=== PATIENT | male | born 1955 | race Caucasian/White ===

== ENCOUNTER → 2018-01-24 | Outpatient (CLI) | payer BC | END | disposition home or self-care (01) | LOC: LABPAT 08:17 | PROVIDERS: ATTEND Orthopaedic Surgery | DX: Z01.812 Encounter for preprocedural laboratory examination (principal) | CPT/HCPCS: 87070 ==

== ENCOUNTER → 2018-01-26 | Outpatient (CLI) | payer BC ==
[2018-01-26 17:04] LABS: Basophils % (A) 1 %; Eosinophils # (A) 0.2 k/uL (0-0.7); Eosinophils % (A) 2 %; HCT 46.3 % (39.0-53.0); HGB 15.2 gm/dL (13.0-17.5); Lymphocytes # (A) 2.4 k/uL (1.0-4.8); Lymphocytes % (A) 25 %; MCH 29.8 pg (25.0-35.0); MCHC 32.9 g/dL (31.0-37.0); MCV 90.7 fL (80.0-100.0); Mean Platelet Volume 7.9; Monocytes # (A) 0.5 k/uL (0-1.0); Monocytes % (A) 5 %; Neutrophils # (A) 6.4 k/uL (1.3-7.7); Neutrophils % (A) 66 %; Platelet Count 228 k/uL (150-450); RDW 13.1 % (11.5-15.5); WBC 9.6 k/uL (3.8-10.6)
[2018-01-26 17:10] LABS: Partial Thromboplastin Time 23.1 sec (22.0-30.0); Prothrombin Time 10.2 sec (9.0-12.0)
[2018-01-26 17:26] LABS: Potassium 4.2 mmol/L (3.5-5.1)
== END | disposition home or self-care (01) ==
LOC: LABPAT 15:55
PROVIDERS: ATTEND Family Medicine
DX: Z01.818 Encounter for other preprocedural examination (principal); Z01.812 Encounter for preprocedural laboratory examination
CPT/HCPCS: 36415; 80051; 85025; 85610; 85730; 93005

== ENCOUNTER 2018-02-10 06:11 | Inpatient (IN) | payer BC, OTHER ==
[2018-02-03 14:55] VITALS: BMI 36.9
--- NOTE | 2018-02-09 11:24 | HP ---
HISTORY AND PHYSICAL CHIEF COMPLAINT: Right knee pain. 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 He notes significant swelling, stiffness, and pain worse with weightbearing activities. He has tried previous medications and injections with only partial temporary relief. He had a history of a right knee arthroscopy in 2014. PAST MEDICAL HISTORY: Significant for hypertension and arthritis. PAST SURGICAL HISTORY: Significant for tonsillectomy and previous right knee arthroscopy. CURRENT MEDICATIONS: Amlodipine. He denies drug allergies. FAMILY HISTORY: Significant for heart disease. SOCIAL HISTORY: Significant for social alcohol use. REVIEW OF SYSTEMS: A 16 point review of systems otherwise reviewed and is noncontributory. PHYSICAL EXAMINATION: On examination, the patient is approximately 5 foot 11, 285 pounds of endomorphic habitus. HEENT exam is nonfocal. Neck is supple, he has painless passive motion of the right hip. Straight leg raise is negative. Active motion right knee -10 to 80 degrees of flexion. He has a moderate effusion. He is tender about the medial joint line. Collaterals are stable, Elan's negative, Raquel's is equivocal. He has genu varum alignment. His distal neurovascular appears intact in the right lower extremity. Previous weightbearing, notch , lateral and Merchant views of the right knee obtained in the office show severe medial compartment osteoarthrosis. IMPRESSION: 1. Right knee severe medial compartment osteoarthrosis. 2. Increased body mass index. RECOMMENDATIONS: I talked to the patient at length regarding his condition and treatment options. This point he is quite limited because of pain related to his osteoarthrosis. After thorough discussion, he opts to proceed with surgery. We will plan to proceed with right total knee arthroplasty. Risks and benefits were discussed at length in layman's terms. We will institute DVT prophylaxis postoperatively. MMODL / IJN: [id number] /
[~2018-02-10 06:11] MED LIST: ACETAMINOPHEN TAB 500 MG TAB PO ONE; MELOXICAM 7.5 MG TAB PO ONE; TRANEXAMIC ACID 1,000 MG in SODIUM CHLORIDE 0.9% 50 ML IVPB ONE
[2018-02-10] MEDS ORDERED: LIDOCAINE 1% 20 ML VIAL (10MG/ML) FOR IV START INTRADERMA ONE (07:05)
[2018-02-10] MEDS ORDERED: DEXAMETHASONE SOD PHOS (MDV) 100 MG/10 ML VIAL IV ONE (07:11)
[2018-02-10] MEDS ORDERED: ONDANSETRON 4 MG/2 ML VIAL IVP ONE (07:11)
[2018-02-10] MEDS ORDERED: fentaNYL (PF) 50 MCG/ML 2 ML AMP IV ONE (07:22)
[2018-02-10] MEDS ORDERED: MIDAZOLAM 2 MG/2 ML VIAL IV ONE (07:22)
[2018-02-10] MEDS ORDERED: LACTATED RINGERS 1,000 ML IV ONE (07:43)
[2018-02-10] MEDS ORDERED: ROPIVACAINE 1,100 MG, SODIUM CHLORIDE 0.9% 500 ML 330 ML MISCELLANE PRN ×2 (07:45)
--- NOTE | 2018-02-10 07:50 | P.ONQ ---
Anesthesiology Proc Note - PNB - Peripheral Nerve Block Performed Right Adductor Canal Infusion Time Out Performed: Yes Procedure Start Time: :23 Procedure Stop Time: :30 Indication: Acute Post-Operative Pain, Analgesia, Requested by physician Sedation Type: Sedate with meaningful contact maintained Preparation: Sterile Prep Position: Supine Catheter Depth at Skin (cm): 4 Catheter: Indwelling Needle Types: On-Q Needle Size: 100mm (4") Needle Gauge: 20 Technique: Ultrasound Injectate: Other (see comment) (bupivicaine 0.5% 20ml) Blood Aspirated: No Pain Paresthesia on Injection Noted: No Resistance on Injection: Normal Events: Uneventful and Well Tolerated
[2018-02-10] MEDS ORDERED: ROPIVACAINE 246.25 MG, EPINEPHrine 0.5 MG, KETOROLAC 30 MG, cloNIDine HCL/PF 80 MCG, WA... MISCELLANE ONE ×5 (08:02)
[2018-02-10] MEDS ORDERED: ceFAZolin 3,000 MG in SODIUM CHLORIDE 0.9% IRRIGATIO 3,000 ML IRRIGATION ONE (08:35)
[2018-02-10] MEDS ORDERED: traMADol 50 MG TAB PO PRN (09:36)
[2018-02-10] MEDS ORDERED: NALOXONE 0.4 MG/ML 1 ML VIAL IV PRN (09:36)
[2018-02-10] MEDS ORDERED: HYDROcodone/APAP 7.5-325MG 1 EACH TAB PO PRN (09:36)
[2018-02-10] MEDS ORDERED: HYDROmorphone 1 MG/ML 1 ML SYRINGE IVP PRN ×2 (09:36)
[2018-02-10] MEDS ORDERED: MAGNESIUM HYDROXIDE 2,400 MG/10 ML CUP PO PRN (09:36)
[2018-02-10] MEDS ORDERED: ONDANSETRON 4 MG/2 ML VIAL IVP PRN (09:36)
--- NOTE | 2018-02-10 10:13 | P.OP ---
Date of Procedure: 02/10/18 Preoperative Diagnosis: Right knee severe tricompartmental osteoarthrosis Postoperative Diagnosis: Same Procedure(s) Performed: Right total knee vmiufoxbtmvy-zrbyaufy-tkvfwobd retaining Implants: Depuy Attune size 9 cemented femoral component, size 9 cemented tibial component , 10 mm articular surface, 38 mm cemented patellar component. This is a cruciate retaining implant. Anesthesia: regional, local, spinal Surgeon: David Curiel Support Staff #1: Michel Russo Estimated Blood Loss (ml): 50 Pathology: other (Bone fragments) Condition: stable Disposition: PACU Indications for Procedure: The patient's a 62-year-old who presents with progressive right knee pain secondary osteoarthrosis despite conservative measures. A discussion of the risks and benefits of operative intervention versus continued conservative measures was made with the patient. He opted to proceed. Operative risks to include infection, neurovascular injury, development of blood clots, possible component loosening, possible component failure and need for subsequent procedures was discussed. Informed consent was obtained. Operative Findings: As below Description of Procedure: The patient was brought to the operating room, and after induction of spinal anesthesia the right lower extremity was prepped and draped in normal fashion. The tourniquet was inflated to 270 mmHg. A longitudinal incision extending 3 finger breaths above this. Pole of patella extending to the medial aspect the tibial tubercle was then made. The skin and subcutaneous tissues were divided sharply. Electrocautery was used for hemostasis. A medial parapatellar arthrotomy was performed. The medial soft tissues to include the superficial and deep portions of the medial collateral ligament as well as the medial hamstring tendons were elevated subperiosteally. The posterior medial capsule was also elevated. The proximal medial tibial osteophytes were carefully removed. The patella was everted. A portion of the retropatellar fat pad was excised sharply. The knee was then flexed. The anterior cruciate ligament was sacrificed. Blunt retractors were placed. A starting hole was made in the distal femur 1 cm anterior to the posterior cruciate ligament origin. An intramedullary femoral guide was gently inserted planning a 5 valgus distal cut with 9 mm distal resection. The cutting block was pinned in place. The distal cut was then made. The posterior referencing sizing guide was utilized. A felt size 9 was most appropriate. 3 of external rotation was built into the system and verified off the trans-epicondylar axis and the posterior condyles. The cutting block was pinned in place. The anterior, posterior, and chamfer cuts were then made. The bone fragments were removed. The sulcus cut was then made with the appropriate guide. The trial size 9 femoral component was placed and was fully seated. There was good anterior to posterior and medial to lateral fit. The distal peg holes were drilled. The trial component was then removed. The extra medullary tibial guide was utilized in line with the tibial shaft and second metatarsal distally. I planned on 2 mm resection from the medial compartment. A planned on 7 posterior slope. The cutting block was pinned. The posterior cruciate ligament was protected with a retractor. The proximal tibial cut was made in the bone removed in one fragment. The tibia sized most probably size 9. The remnants of the medial and lateral menisci were excised at the capsular junction with electrocautery. The trial femoral and tibial components were placed along with a 10 mm articular surface. I was able to obtain full flexion and extension with good stability with varus and valgus stress. After several flexion and extension cycles, the tibial rotation was marked with electrocautery in line with the medial one third of the tibial tubercle. Attention was then paid towards preparing the patella. A patella reamer was utilized taking this down to 15 mm of bone stock. A good flush cut was made. The patella sized most appropriately 38 mm per the peg holes were drilled. The trial components placed. The knee was taken through a range of motion. I had good patellofemoral tracking with no hands technique. The trial components were then removed. The tibia was prepared in the appropriate rotation with appropriate drill and keel punch. The posterior osteophytes of the distal femur were carefully removed. The flexion and extension gaps were checked and felt to be symmetric. The posterior soft tissues were injected with ropivacaine. The bony surfaces were prepared with pulsatile lavage and dried. Additional drill holes were made in the proximal medial tibia to facilitate cement interdigitation. The tibial component was then cemented in place and was fully seated. Excess cement was removed. The femoral component was cemented place and was fully seated. Excess cement was removed. The trial 10 mm articular surface was placed in the knee was put in full extension. The patella component cemented in place. After the cement had sufficiently hardened , the knee was again taken through a range of motion. Again I was able to obtain full flexion and extension with good stability with varus and valgus stress. The trial articular surface was removed and the final one inserted. This was fully seated. Care was taken to avoid any soft tissue interposition. Pulsatile lavage was again utilized. The tourniquet was deflated with approximately 70 minutes total tourniquet time. Final hemostasis was obtained with electrocautery. The second dose of IV TXA was given. The medial parapatellar arthrotomy was closed with #2 Ethibond suture. Was minimal drainage therefore a deep drain was not placed. The subcutaneous tissues were reapproximated interrupted 2-0 Vicryl sutures. The skin was reapproximated with 3-0 subcuticular strata fix suture. Skin tape and adhesive was applied. A sterile dressing was applied. The patient was then awoken from sedation and transferred to recovery room in good condition. Blood loss was estimated at 50 mL. No complications were incurred. Sponge and needle counts were correct at the end the case. Moiz KENT assisted during the major components of the case to include exposure, bone resection, implantation.
[2018-02-10 10:36] VITALS: RESP 16
--- NOTE | 2018-02-10 10:52 | XR ---
Right knee HISTORY: Status post right knee arthroplasty 2 views of the right knee Patient is status post right knee arthroplasty. There is lucency in the soft tissues compatible with postop state. There is anatomic alignment. IMPRESSION: Orthopedic follow-up.
[2018-02-10] MEDS: LACTATED RINGERS 1,000 ML IV SCH (10:57)
--- NOTE | 2018-02-10 12:59 | P.CONS ---
History of Present Illness - Reason for Consult Consult date: 02/10/18 Medical management Requesting physician: David Curiel - Chief Complaint s/p right TKA - History of Present Illness 62-year-old male who underwent elective right total knee arthroplasty on 02/10/[address] Deal was consulted for medical management. The patient has a history of hypertension, osteoarthritis, and GERD. The patient also chews tobacco on a daily basis. The patient was seen and examined at the bedside. Patient states his pain is tolerable at this time. He denies shortness of breath. Denies chest pain or pressure. Patient does report he recently related to the bathroom. Patient states he had some nausea initially in the postoperative phase but states it has subsided. He is tolerating liquids at this time. Vital signs have been stable. Review of Systems GENERAL: Patient denies fever. Denies chills. EYES: Denies blurred vision. Denies vision changes. Denies eye pain. EARS, NOSE, MOUTH, & THROAT: Denies headache. Denies sore throat. Denies ear pain. RESPIRATORY: Denies cough. Denies shortness of breath. Denies sputum production. Denies hemoptysis. CARDIOVASCULAR: Denies chest pain or pressure. Denies palpitations. Denies arrhythmias. GASTROINTESTINAL: Reports some nausea postoperatively. Denies abdominal pain. Denies diarrhea. Denies constipation. Denies vomiting. Denies heartburn. Denies blood in the stool. GENITOURINARY: Denies urinary frequency. Denies burning. Denies dysuria. Denies cloudy urine. Denies blood in the urine. MUSCULOSKELETAL: Denies myalgias. Denies joint swelling. Denies decreased range of motion beyond patients baseline. INTEGUMENTARY: Denies pruitis. Denies rash. PSYCHIATRIC: Denies suicidal or homicial ideations. ENDOCRINE: Denies weight change. Denies polydipsia. Denies polyuria. HEMATOLOGIC: Denies bleeding disorders. Past Medical History Past Medical History: Asthma, GERD/Reflux, Hypertension, Osteoarthritis (OA) Additional Past Medical History / Comment(s): asthma as a child History of Any Multi-Drug Resistant Organisms: None Reported Past Surgical History: Orthopedic Surgery, Tonsillectomy Additional Past Surgical History / Comment(s): arthroscopy knee Past Anesthesia/Blood Transfusion Reactions: No Reported Reaction Smoking Status: Current every day smoker - Past Family History Mother Family Medical History: No Reported History Medications and Allergies Home Medications Medication Instructions Recorded Confirmed Type amLODIPine BESYLATE/BENAZEPRIL 1 cap PO DAILY 02/03/18 02/10/18 History [amLODIPine BESYLATE/BENAZEPRIL 10-20 mg] Allergies Allergy/AdvReac Type Severity Reaction Status Date / Time No Known Allergies Allergy Verified 02/10/18 10:34 Physical Exam Vitals: Vital Signs Temp Pulse Resp BP Pulse Ox 02/10/18 10:45 74 16 128/57 93 L 02/10/18 10:30 49 L 16 134/59 96 02/10/18 10:15 62 18 114/61 96 02/10/18 10:03 97.1 F L 54 L 14 104/77 98 02/10/18 07:35 63 16 123/67 99 02/10/18 07:05 98.4 F 80 16 132/79 98 Intake and Output 02/09/18 02/10/18 02/10/18 22:59 06:59 14:59 Intake Total 951 Output Total 50 Balance 901 Intake: IV 951 Output: Estimated Blood Loss 50 GENERAL: This is a 62-year-old male in no apparent distress at the time of examination. Pleasant and cooperative. HEENT: Head is atraumatic, normocephalic. Pupils are equal, round, and reactive to light. Sclerae anicteric. Conjunctivae are clear. Mucus membranes of the mouth are moist. Neck is supple. RESPIRATORY: Clear to auscultation. No wheezes, rales, or rhonchi. No use of accessory muscles. Patient maintaining oxygen saturation greater than 92%. No chest wall tenderness is noted on palpation or with deep breathing. CARDIOVASCULAR: Regular rate and rhythm. S1 and S2 noted. No JVD noted. No S3 or S4 noted. GASTROINTESTINAL: No distention noted. Abdomen soft and round. Normal active bowel sounds auscultated x 4 quadrants. No pain or tenderness noted upon palpation. INTEGUMENTARY: Dressing to right knee clean dry and intact. No cyanosis. No jaundice. No rashes noted. No cellulitis noted. EXTREMITIES: On-Q pain pump noted. 2+ peripheral pulses. No evidence of peripheral edema. No calf tenderness noted. NEUROLOGIC: Cranial nerves II-XII intact. PSYCHIATRIC: Awake, alert, and oriented X 3. Appropriate affect. Intact judgement and insight. Assessment and Plan Plan: ASSESSMENT: Osteoarthritis, status post right total knee arthroplasty Hypertension Gastroesophageal reflux disease Nicotine dependence, patient chews tobacco on a daily basis Obesity: BMI 37.0 PLAN: Continue postoperative care per orthopedics. Activity as tolerated. PT/OT. Pain control. Incentive spirometer 10 times an hour while awake. Resume patient's home medications. DVT prophylaxis with Xarelto. GI prophylaxis with Pepcid 20 mg twice daily. Monitor labs. Monitor blood pressure and address as appropriate. Thank you for this consultation. We will continue to follow with Venkata during his hospitalization. Nurse practitioner note has been reviewed by physician. Signing provider agrees with the documented findings, assessment, and plan of care.
[2018-02-10] MEDS: HYDROcodone/APAP 7.5-325MG 1 EACH TAB PO PRN ×2 (16:11→22:15)
[2018-02-10] MEDS ORDERED: SENNOSIDES-DOCUSATE SODIUM 1 EACH TAB PO SCH (21:00)
[2018-02-10] MEDS: FAMOTIDINE 20 MG TAB PO SCH (22:42)
[2018-02-11 01:31] VITALS: PULSE 61
[2018-02-11] MEDS: HYDROcodone/APAP 7.5-325MG 1 EACH TAB PO PRN ×2 (05:08→11:28)
[2018-02-11] MEDS: LACTATED RINGERS 1,000 ML IV SCH (06:54)
[2018-02-11 08:08] VITALS: BP 128/85; TEMP 98.1
[2018-02-11] MEDS: FAMOTIDINE 20 MG TAB PO SCH (08:14)
[2018-02-11] MEDS ORDERED: amLODIPine 10 MG TAB PO SCH (09:00)
[2018-02-11] MEDS ORDERED: RIVAROXABAN 10 MG TAB PO SCH (09:00)
[2018-02-11] MEDS ORDERED: LISINOPRIL 20 MG TAB PO SCH (09:00)
[2018-02-11 09:39] LABS: Basophils % (A) 0 %; Eosinophils # (A) 0.1 k/uL (0-0.7); Eosinophils % (A) 1 %; HCT 40.1 % (39.0-53.0); HGB 12.7 gm/dL (13.0-17.5); Lymphocytes # (A) 2.4 k/uL (1.0-4.8); Lymphocytes % (A) 19 %; MCH 29.3 pg (25.0-35.0); MCHC 31.8 g/dL (31.0-37.0); MCV 92.2 fL (80.0-100.0); Mean Platelet Volume 8.1; Monocytes # (A) 0.8 k/uL (0-1.0); Monocytes % (A) 6 %; Neutrophils # (A) 9.5 k/uL (1.3-7.7); Neutrophils % (A) 73 %; Platelet Count 175 k/uL (150-450); RBC 4.35 m/uL (4.30-5.90); WBC 13.1 k/uL (3.8-10.6)
--- NOTE | 2018-02-11 11:56 | P.PN ---
Subjective Progress Note Date: 02/11/18 Principal diagnosis: Status post right total knee arthroplasty Patient is seen today resting in his hospital bed, he has family at bedside. Patient is doing very well at this point, pain is well-controlled. He's ambulating well with therapy. Denies any chest pain or shortness of breath. Objective - Vital Signs Vital signs: Vital Signs Temp 98.1 F 02/11/18 08:06 Pulse 61 02/11/18 08:06 Resp 16 02/11/18 08:06 BP 128/85 02/11/18 08:06 Pulse Ox 99 02/11/18 08:06 Intake & Output 02/10/18 02/11/18 02/11/18 18:59 06:59 18:59 Intake Total 1441 200 Output Total 550 Balance 891 200 Weight 120.202 kg Intake: IV 951 Intake, IV Titration 50 200 Amount Lactated Ringers 1,000 ml 200 @ 50 mls/hr IV .Q20H CALEB Rx#:[id number] ceFAZolin 3 gm In Sodium 50 Chloride 0.9% 50 ml @ 50 mls/hr IVPB Q8HR CALEB Rx#: [id number] Oral 440 Output: Urine 500 Estimated Blood Loss 50 Other: Voiding Method Toilet Toilet Toilet # Voids 1 1 - Exam Right lower extremity: Incision is clean, dry, and intact. The prineo tape is in good condition. There is minimal soft tissue swelling and ecchymosis surrounding the medial and lateral aspects of the incision. Calf is soft, no tenderness with palpation. Plantar flexion, dorsiflexion, EHL, FHL are intact. Sensory exam to light touch throughout the extremity is intact, dorsal pedis pulses 2+. - Labs CBC & Chem 7: 02/11/18 07:42 Labs: Abnormal Lab Results - Last 24 Hours (Table) 02/11/18 Range/Units 07:42 WBC 13.1 H (3.8-10.6) k/uL Hgb 12.7 L (13.0-17.5) gm/dL Neutrophils # 9.5 H (1.3-7.7) k/uL Assessment and Plan Plan: Assessment: Postoperative day 1 status post right total knee arthroplasty Plan: Pain control, we'll discharge home on oral medication GI and DVT prophylaxis, Eliquis 2.5mg bid for 2 weeks Wound care instructions discussed Home physical therapy and nursing after discharge Medical recommendations Discharge planning: Patient will be discharged home today Time with Patient: Less than 30
--- NOTE | 2018-02-11 12:02 | P.DS ---
Providers Date of admission: 02/10/18 06:11 Expected date of discharge: 02/11/18 Attending physician: David Curiel Consults: 02/10/18 09:39 Consult Physician Routine Consulting Provider: Melecio Deal Reason/Comments: Medical Management Do you want consulting provider notified?: Yes Primary care physician: Melecio Deal Hospital Course: Date of admission: 02/10/2018 Date of discharge: 02/11/2018 Admission diagnosis: Status post right total knee arthroplasty Discharge diagnosis: Same Attending physician: Dr. Curiel Surgical procedures: Right total knee arthroplasty Brief history: Patient is a 62-year-old male with a history of progressive primary right knee osteoarthritis. At this point patient has failed conservative treatment measures and has opted to proceed with a elective right total knee arthroplasty. Hospital course: Details of patient's surgery can be found in operative report. Patient tolerated the procedure well and was subsequently transported to orthopedic floor. Patient's orthopeidc and medical care was provided daily. Patient had daily laboratory tests performed for evaluation of overall blood counts. Patient had daily physical therapy to include strengthening range of motion as well as education with walker ambulation. Patient had daily CPM usage as part of their physical therapy program. Patient was treated with Xarelto for their postoperative DVT prophylaxis during their inpatient stay. Patient was noted to have a relatively uneventful postoperative course. Patient reported satisfactory pain control with oral pain medications by postoperative day 0. Patient showed satisfactory progress with physical therapy. Patient moved steadily through the program and had no difficulty meeting the goals by postoperative day 1. Given patient's otherwise satisfactory course and having met physical therapy goals, plan is to discharge patient home on postoperative day 1. Discharge condition/disposition: Patient will be discharged home in stable condition. Discharge medications: Instructions are given on resumption of patient's normal daily medications per primary care recommendation, in addition patient will be prescribed [place] 7.5 mg/325 mg, tramadol 50 mg, Colace 100 mg, Eliquis 2.5mg. Discharge instructions: 1. Wound care and infection precautions, keep incision dry and covered while showering, no lotions, creams, moisturizers. No soaking, tubs, pools, hottubs. Do not scrub over the incision. 2. Weight-bear as tolerated with walker / cane until follow-up. 3. Ice and elevate when necessary. Do not exceed 20 minutes per hour with ice pack. 4. Utilize compression sleeve until seen at first follow up appointment. 5. Visiting nursing care. 6. Home physical therapy including home CPM. 7. Pain meds and anticoagulants per prescription. 8. Pain medication has potential to cause constipation. Increase oral fluid and fiber intake. Contact primary care provider if you have not had a bowel movement within 48 hours after discharge 9. No anti-inflammatory medication until discussed at first post operative visit, this including Motrin, Aleve, Mobic, Diclofenac. 10. Follow up in office at 2 weeks postop with Moiz Russo PA-C 11. Follow up with your primary care doctor 7-10 days after discharge. 12. Contact [facility] with any questions, . Procedures: Right total knee arthroplasty Patient Condition at Discharge: Good Plan - Discharge Summary Discharge Rx Participant: Yes New Discharge Prescriptions: New Docusate [Colace] 100 mg PO DAILY #30 capsule HYDROcodone/APAP 7.5-325MG [[place] 7.5] 1 - 2 each PO Q6HR PRN #40 tab PRN Reason: Pain traMADol HCl [Ultram] 50 mg PO Q6H PRN #28 tab PRN Reason: Pain Continue amLODIPine BESYLATE/BENAZEPRIL [amLODIPine BESYLATE/BENAZEPRIL 10-20 mg] 1 cap PO DAILY Discharge Medication List amLODIPine BESYLATE/BENAZEPRIL [amLODIPine BESYLATE/BENAZEPRIL 10-20 mg] 1 cap PO DAILY 02/03/18 [History] Docusate [Colace] 100 mg PO DAILY #30 capsule 02/11/18 [Rx] HYDROcodone/APAP 7.5-325MG [[place] 7.5] 1 - 2 each PO Q6HR PRN #40 tab 02/11/18 [ Rx] traMADol HCl [Ultram] 50 mg PO Q6H PRN #28 tab 02/11/18 [Rx] Follow up Appointment(s)/Referral(s): [facility], [NON-STAFF] - As Needed Michel Russo PAC [PHYSICIAN EMPLOYEE RELATIONS MANAGER] - 02/25/18 2:30 pm Melecio Deal MD [Primary Care Provider] - 02/24/18 10:30 am Activity/Diet/Wound Care/Special Instructions: Orthopedic Discharge Instructions: 1. Wound care and infection precautions, keep incision dry and covered while showering, no lotions, creams, moisturizers. No soaking, pools, hot tubs. Do not scrub over incision. 2. Weight-bear as tolerated with walker / cane until follow-up. 3. Ice and elevate when necessary. Do not exceed 20 minutes per hour with ice pack. 4. Utilize compression sleeve until seen at first follow up appointment. 5. Pain meds and anticoagulants per prescription. 6. Pain medication has potential to cause constipation. Increase oral fluid and fiber intake. Contact primary care provider if you have not had a bowel movement within 48 hours after discharge. 7. No anti-inflammatory medication until discussed at first post operative visit, this including Motrin, Aleve, Mobic, Diclofenac. 8. Follow up in office at 2 weeks postop with Moiz Russo PA-C 9. Follow up with your primary care doctor 7-10 days after discharge. 10. Contact [facility] with any questions, . Discharge Disposition: HOME WITH HOME HEALTH SERVICES
--- NOTE | 2018-02-11 12:06 | P.PN ---
Subjective Progress Note Date: 02/11/18 62-year-old male who underwent elective right total knee arthroplasty on 02/10/[address] Deal was consulted for medical management. The patient has a history of hypertension, osteoarthritis, and GERD. The patient also chews tobacco on a daily basis. 02/10/2018 The patient was seen and examined at the bedside. Patient states his pain is tolerable at this time. He denies shortness of breath. Denies chest pain or pressure. Patient does report he recently related to the bathroom. Patient states he had some nausea initially in the postoperative phase but states it has subsided. He is tolerating liquids at this time. Vital signs have been stable. 02/11/2018 patient seen and examined at the bedside. Patient states his right knee is a little sore this morning. He has been up ambulating in the hallway and has worked with physical therapy. Denies chest pain or shortness of breath. Patient states his nausea has improved since yesterday. He is tolerating oral intake. Vital signs have been stable. He is anticipating discharge home this afternoon. Objective - Vital Signs Vital signs: Vital Signs Temp 98.1 F 02/11/18 08:06 Pulse 61 02/11/18 08:06 Resp 16 02/11/18 08:06 BP 128/85 02/11/18 08:06 Pulse Ox 99 02/11/18 08:06 Intake & Output 02/10/18 02/11/18 02/11/18 18:59 06:59 18:59 Intake Total 1441 200 Output Total 550 Balance 891 200 Weight 120.202 kg Intake: IV 951 Intake, IV Titration 50 200 Amount Lactated Ringers 1,000 ml 200 @ 50 mls/hr IV .Q20H CAL[facility] Rx#:[id number] ceFAZolin 3 gm In Sodium 50 Chloride 0.9% 50 ml @ 50 mls/hr IVPB Q8HR CALEB Rx#: [id number] Oral 440 Output: Urine 500 Estimated Blood Loss 50 Other: Voiding Method Toilet Toilet Toilet # Voids 1 1 - Exam GENERAL: This is a 62-year-old male in no apparent distress at the time of examination. Pleasant and cooperative. HEENT: Head is atraumatic, normocephalic. Pupils are equal, round, and reactive to light. Sclerae anicteric. Conjunctivae are clear. Mucus membranes of the mouth are moist. Neck is supple. RESPIRATORY: Clear to auscultation. No wheezes, rales, or rhonchi. No use of accessory muscles. Patient maintaining oxygen saturation greater than 92%. No chest wall tenderness is noted on palpation or with deep breathing. CARDIOVASCULAR: Regular rate and rhythm. S1 and S2 noted. No JVD noted. No S3 or S4 noted. GASTROINTESTINAL: No distention noted. Abdomen soft and round. Normal active bowel sounds auscultated x 4 quadrants. No pain or tenderness noted upon palpation. INTEGUMENTARY: Dressing to right knee clean dry and intact. No cyanosis. No jaundice. No rashes noted. No cellulitis noted. EXTREMITIES: On-Q pain pump noted. 2+ peripheral pulses. No evidence of peripheral edema. No calf tenderness noted. NEUROLOGIC: Cranial nerves II-XII intact. PSYCHIATRIC: Awake, alert, and oriented X 3. Appropriate affect. Intact judgement and insight. - Labs CBC & Chem 7: 02/11/18 07:42 Labs: Abnormal Lab Results - Last 24 Hours (Table) 02/11/18 Range/Units 07:42 WBC 13.1 H (3.8-10.6) k/uL Hgb 12.7 L (13.0-17.5) gm/dL Neutrophils # 9.5 H (1.3-7.7) k/uL Assessment and Plan Plan: ASSESSMENT: Osteoarthritis, status post right total knee arthroplasty Hypertension Gastroesophageal reflux disease Nicotine dependence, patient chews tobacco on a daily basis Obesity: BMI 37.0 PLAN: Continue postoperative care per orthopedics. Activity as tolerated. PT/OT. Pain control. Incentive spirometer 10 times an hour while awake. Resume patient's home medications. DVT prophylaxis per orthopedics. GI prophylaxis with Pepcid 20 mg twice daily. Monitor labs. Monitor blood pressure and address as appropriate. The patient is stable for discharge home today from a medical standpoint. He is to follow up with Dr. Deal in 2 weeks. Nurse practitioner note has been reviewed by physician. Signing provider agrees with the documented findings, assessment, and plan of care.
== END 2018-02-11 15:44 | disposition home health service (06) | DRG 470 ==
LOC: 2ORMAIN 06:11 → 4SSUR 09:58
PROVIDERS: ADMIT Orthopaedic Surgery; ATTEND Orthopaedic Surgery
PROC: 0SRC0J9 Replacement of Right Knee Joint with Synthetic Substitute, Cemented, Open Approach (ICD-10-PCS; principal; 2018-02-10 08:00)
DX: M17.11 Unilateral primary osteoarthritis, right knee (principal); I10 Essential (primary) hypertension; Z79.899 Other long term (current) drug therapy; K21.9 Gastro-esophageal reflux disease without esophagitis; F17.290 Nicotine dependence, other tobacco product, uncomplicated; J45.909 Unspecified asthma, uncomplicated; E66.9 Obesity, unspecified; Z68.37 Body mass index [BMI] 37.0-37.9, adult
CPT/HCPCS: 85025; 88300

== ENCOUNTER → 2018-05-28 | Day surgery (SDC) | payer BC ==
[2018-05-26 16:24] VITALS: BMI 37.3
[~2018-05-28] MED LIST changes: -ACETAMINOPHEN TAB 500 MG TAB PO ONE; +LACTATED RINGERS 1,000 ML IV SCH; +LIDOCAINE 1% 20 ML VIAL (10MG/ML) FOR IV START INTRADERMA PRN; +LIDOCAINE 1% INJ 10MG/ML (20 ML MDV) ONE; -MELOXICAM 7.5 MG TAB PO ONE; +MIDAZOLAM (PF) 2 MG/2 ML VIAL IV PRN; +PROPOFOL 10 MG/ML 20 ML VIAL IV ONE; +RX INFO: IV CONTRAST WAS GIVEN 1 EACH MISC MISCELLANE PRN; -TRANEXAMIC ACID 1,000 MG in SODIUM CHLORIDE 0.9% 50 ML IVPB ONE
--- NOTE | 2018-05-28 08:31 | P.GSHP ---
History of Present Illness H&P Date: 05/28/18 CHIEF COMPLAINT: GERD HISTORY OF PRESENT ILLNESS: The patient is a 63-year-old male who presents reports gastroesophageal reflux disease. Upper endoscopy was offered for further evaluation and management. PAST MEDICAL HISTORY: Please see list. PAST SURGICAL HISTORY: Please see list. MEDICATIONS: Please see list. ALLERGIES: Please see list. SOCIAL HISTORY: No illicit drug use FAMILY HISTORY: No reports of Crohn disease or ulcerative colitis. REVIEW OF ORGAN SYSTEMS: CONSTITUTIONAL: No reports of fevers or chills. GI: Denies any blood in stools or constipation. PHYSICAL EXAM: VITAL SIGNS: Stable GENERAL: Well-developed and pleasant in no acute distress. HEENT: No scleral icterus. Extraocular movements grossly intact. Moist buccal mucosa. NECK: Supple without lymphadenopathy. CHEST: Unlabored respirations. Equal bilateral excursions. CARDIOVASCULAR: Regular rate and rhythm. Distal 2+ pulses. ABDOMEN: Soft, nondistended. MUSCULOSKELETAL: No clubbing, cyanosis, or edema. ASSESSMENT: 1. Gastroesophageal reflux disease PLAN: 1. Recommend proceeding with an upper endoscopy Past Medical History Past Medical History: Asthma, GERD/Reflux, Hypertension, Osteoarthritis (OA) Additional Past Medical History / Comment(s): asthma as a child History of Any Multi-Drug Resistant Organisms: None Reported Past Surgical History: Joint Replacement, Orthopedic Surgery, Tonsillectomy Additional Past Surgical History / Comment(s): arthroscopy RT knee. RT TKA. COLONOSCOPY Past Anesthesia/Blood Transfusion Reactions: No Reported Reaction Smoking Status: Current every day smoker - Past Family History Mother Family Medical History: No Reported History Medications and Allergies Home Medications Medication Instructions Recorded Confirmed Type amLODIPine BESYLATE/BENAZEPRIL 1 cap PO DAILY 02/03/18 05/26/18 History [amLODIPine BESYLATE/BENAZEPRIL 10-20 MG] Pantoprazole [Protonix] 40 mg PO DAILY 05/26/18 05/26/18 History Allergies Allergy/AdvReac Type Severity Reaction Status Date / Time No Known Allergies Allergy Verified 02/10/18 10:34
[2018-05-28 11:46] VITALS: RESP 16; TEMP 97.8
--- NOTE | 2018-05-28 12:57 | P.PCN ---
Date of Procedure: 05/28/18 Description of Procedure: PREOPERATIVE DIAGNOSIS: Gastroesophageal reflux disease. Morbid obesity. Dysphagia POSTOPERATIVE DIAGNOSIS: Gastroesophageal reflux disease. Morbid obesity. Dysphagia Esophageal mass OPERATION: Esophagogastroduodenoscopy with biopsies along distal esophagus SURGEON: Светлана Abernathy MD ANESTHESIA: MAC. INDICATIONS: The patient is a 63-year-old male who presents with a history of dysphagia. Benefits and risks of the procedure were described. Informed consent was obtained. DESCRIPTION: The patient was brought into the endoscopy suite and laid in the left lateral decubitus position. An Olympus gastroscope was passed along the posterior oropharynx down to the distal esophagus where the squamocolumnar junction was encountered at 40 cm from the incisors. The stomach was entered and no bile reflux was found. Additional findings are listed below. Biopsies with cold forceps were obtained of the antrum. The first through third portion of the duodenum was examined and unremarkable. Retroflexion of the scope confirmed Hill grade 3 lower esophageal valve. The squamocolumnar junction was obliterated by esophageal mass with circumferential involvement with stricture and ulceration with bleeding from 37-40 cm from the incisors. Cold biopsy forceps was obtained of the distal esophageal mass. The stomach was desufflated. The patient tolerated the procedure well. FINDINGS: Squamocolumnar junction 40 cm from the incisors. Diaphragmatic hiatus at 40 cm. The squamocolumnar junction was obliterated by esophageal mass with circumferential involvement with stricture and ulceration with bleeding from 37- 40 cm from the incisors. Cold biopsy forceps was obtained of the distal esophageal mass. Hill grade 3 lower esophageal valve. LA grade, unable to obtain from esophageal mass No active duodenitis. Chronic gastritis No gastric ulcers No duodenal ulcers RECOMMENDATIONS: 1. Stat CT chest abdomen and pelvis for esophageal mass 2. Await biopsies 3. Liquid diet/blenderized diet only Plan - Discharge Summary New Discharge Prescriptions: No Action amLODIPine BESYLATE/BENAZEPRIL [amLODIPine BESYLATE/BENAZEPRIL 10-20 MG] 1 cap PO DAILY Pantoprazole [Protonix] 40 mg PO DAILY Discharge Medication List amLODIPine BESYLATE/BENAZEPRIL [amLODIPine BESYLATE/BENAZEPRIL 10-20 MG] 1 cap PO DAILY 02/03/18 [History] Pantoprazole [Protonix] 40 mg PO DAILY 05/26/18 [History] Follow up Appointment(s)/Referral(s): Светлана Abernathy MD [STAFF PHYSICIAN] - 06/02/18 Patient Instructions/Handouts: Esophagitis (ED), Esophageal Stricture (DC), Full Liquid Diet (DC), Complete Blenderized Diet (DC) Activity/Diet/Wound Care/Special Instructions: Liquid diet only Discharge Disposition: HOME SELF-CARE
[2018-05-28 13:31] VITALS: BP 131/87; PULSE 75
--- NOTE | 2018-05-30 20:17 | CT ---
EXAMINATION TYPE: CT chest abdomen w con DATE OF EXAM: 05/28/2018 COMPARISON: None HISTORY: Abnormal EGD, esophageal mass. CT DLP: 1823.6 mGycm. Automated Exposure Control for Dose Reduction was Utilized. CONTRAST: CT scan of the thorax, abdomen and pelvis is performed with IV Contrast, patient injected with 100 mL of Isovue 300. FINDINGS: The lungs are clear of infiltrate. There is no evidence of a pulmonary mass. There is no pleural effu dov. Heart size is normal. There is no pericardial effusion. There is enlarged esophagus with fluid level. There is thickening of the wall of the distal esophagus. There is no mediastinal adenopathy. T horacic aorta shows no evidence of aneurysm or dissection. There are no hilar masses. The stomach has normal size. Liver spleen pancreas gallbladder appear normal. Bile ducts are not dila levi. There is no adrenal mass. Kidneys show satisfactory contrast opacification. There is no hydronephrosi s. There is no retroperitoneal adenopathy. There is no evidence of renal obstruction. There is no mes enteric edema. There is no sign of free air. There is no ascites. I see no bony destructive process. There is a few millimeter anterior subluxation of L4 in relation L5. There is no spondylolysis. IMPRESSION: There is circumferential wall thickening of the distal esophagus that measures up to 1.3 cm in thickn ess. There is mildly dilated thoracic esophagus with fluid level. Esophageal mass or stricture is ren pected. There is evidence for esophageal obstruction. Degenerative first-degree L4-5 spondylolisthesis. There is L4-5 bony moderate spinal stenosis. Small renal cortical cysts.
== END | disposition home or self-care (01) ==
LOC: ORWHC2ENDO 10:30
PROVIDERS: ATTEND Surgery Plastic and Reconstructive Surgery
DX: K22.710 Barrett's esophagus with low grade dysplasia (principal); K21.9 Gastro-esophageal reflux disease without esophagitis; K29.50 Unspecified chronic gastritis without bleeding; E66.01 Morbid (severe) obesity due to excess calories; Z68.37 Body mass index [BMI] 37.0-37.9, adult; J45.909 Unspecified asthma, uncomplicated; I10 Essential (primary) hypertension; M19.90 Unspecified osteoarthritis, unspecified site; F17.200 Nicotine dependence, unspecified, uncomplicated; Z79.899 Other long term (current) drug therapy; Z96.651 Presence of right artificial knee joint
CPT/HCPCS: 88305; 71260; 74160; 43239; J2001; J2704; Q9967

== ENCOUNTER → 2018-06-13 | Outpatient (CLI) | payer BC ==
--- NOTE | 2018-06-15 07:46 | PE ---
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 TECHNIQUE: Following the intravenous administration of 13.365 mCi of F-18 FDG, whole body images are performed from the skull base to the midthigh. Images are reviewed on the computer in the coronal, axial, and sagittal planes. Reconstructed rotating images are created on independent workstation and reviewed on the computer. A noncontrast CT is performed in conjunction with the PET scan. SCAN: Initial Scan FINDINGS: SKULL BASE AND NECK: No suspicious hypermetabolic uptake is seen. CHEST, MEDIASTINUM, AND HILAR REGION: Involving the distal esophagus extending to level just above th e diaphragm over roughly 4 cm segment there is moderate to severe concentric wall thickening with hyp ermetabolic uptake, max SUV 28.45 is on axial image 124. Proximal to this there is moderately dilated esophagus with air-fluid level redemonstrated. No additional areas suspicious hypermetabolic uptake. ABDOMEN AND PELVIS: Normal excretion in collecting systems and bladder. No suspicious hypermetabolic uptake. OSSEOUS STRUCTURES: No suspicious hypermetabolic uptake. OTHER CT: Some scattered left-sided pelvic phleboliths are seen. There is multilevel facet arthropathy in the mid to lower lumbar spine. IMPRESSION: Hypermetabolic uptake identified in biopsy proven distal esophageal cancer. No metastatic disease or suspicious adenopathy is evident.
== END | disposition home or self-care (01) ==
LOC: RADPETMAIN 14:24
PROVIDERS: ATTEND Internal Medicine Hematology & Oncology
DX: C15.5 Malignant neoplasm of lower third of esophagus (principal)
CPT/HCPCS: 78815; A9552

== ENCOUNTER → 2018-09-11 | Outpatient (CLI) | payer BC ==
--- NOTE | 2018-09-12 11:49 | PE ---
EXAMINATION TYPE: PET CT fusion skull to thigh DATE OF EXAM: 09/11/2018 COMPARISON: Prior PET/CT from June 13, 2018. Prior CT chest and abdomen May 28, 2018. HISTORY: Esophageal cancer progress study after completing chemotherapy August 20 and completing radiatio n treatment August 24. TECHNIQUE: Following the intravenous administration of 11.66 mCi of F-18 FDG, whole body images are performed from the skull base to the midthigh. Images are reviewed on the computer in the coronal, a xial, and sagittal planes. Reconstructed rotating images are created on independent workstation and reviewed on the computer. A noncontrast CT is performed in conjunction with the PET scan. SCAN: Subsequent Scan FINDINGS: SKULL BASE AND NECK: No new areas of suspicious hypermetabolic uptake. CHEST, MEDIASTINUM, AND HILAR REGION: There is persistent hypermetabolic uptake in the distal esophag us but felt improved from prior study, max SUV is 6.62. There is persistent moderate to severe concen tric wall thickening axial image 121 noted with proximal dilatation and air-fluid level of the proxim al to mid esophagus. No new areas of suspicious hypermetabolic uptake. ABDOMEN AND PELVIS: Normal excretion redemonstrated. No new areas of suspicious hypermetabolic uptake . OSSEOUS STRUCTURES: No suspicious hypermetabolic uptake. OTHER CT: Persistent multilevel facet arthropathy in the mid to lower lumbar spine. Scattered pelvic phleboliths redemonstrated along with central calcifications in prostate gland. IMPRESSION: Positive partial treatment response at level of distal esophagus. No new suspicious areas are evident.
== END | disposition home or self-care (01) ==
LOC: RADPETMAIN 15:24
PROVIDERS: ATTEND Internal Medicine Hematology & Oncology
DX: C15.5 Malignant neoplasm of lower third of esophagus (principal)
CPT/HCPCS: 78815; A9552

== ENCOUNTER → 2018-10-26 | Outpatient (CLI) | payer BC ==
--- NOTE | 2018-10-26 10:12 | FL ---
COMPARISON: NONE DATE OF EXAM: 10/26/2018 HISTORY: Dysphasia A number of thin and thick substances were ingested under the care of the department of speech pathol ogy. There is no evidence of aspiration or penetration. There is no evidence of obstruction. No im ages submitted, 50 seconds of fluoroscopy. IMPRESSION: 1. No evidence of aspiration or penetration.
== END | disposition home or self-care (01) ==
LOC: RADUSWWP 08:50
PROVIDERS: ATTEND Thoracic Surgery (Cardiothoracic Vascular Surgery)
DX: C15.5 Malignant neoplasm of lower third of esophagus (principal); Z90.49 Acquired absence of other specified parts of digestive tract
CPT/HCPCS: 74230

== ENCOUNTER → 2019-03-19 | Outpatient (CLI) | payer BC ==
--- NOTE | 2019-03-26 15:57 | PE ---
Nuclear medicine PET/CT HISTORY: Esophageal carcinoma, subsequent Patient received 11.3 mCi F-18 FDG intravenously in delayed scanning was performed from the skull bas e to the mid thighs. Localization and attenuation correction CT scan was performed. Correlation to prior nuclear medicine PET/CT dated 09/11/2018 Neck and chest: No suspicious hypermetabolic uptake. No evident cervical, supraclavicular, mediastina l, axillary, or hilar adenopathy. Patient is status post esophagectomy with gastric pull-through. The re is been interval development of a small left pleural effusion. No evident lung mass. ABDOMEN: No retroperitoneal adenopathy. No evident liver mass. No suspicious hypermetabolic uptake. T here are prostate calcifications present. No evident pelvic adenopathy or ascites. Postop changes are noted in the left lower quadrant, surgical kenton are present. Osseous structures: There there are multiple areas of increased uptake in the bilateral posterior rib s which may be due to posttreatment change, uptake is not suspicious. Uptake in the greater trochante rs is also nonspecific. IMPRESSION: Postop changes. No suspicious hypermetabolic uptake is evident. There is interval develop ment of left pleural effusion. Additional findings above.
== END | disposition home or self-care (01) ==
LOC: RADPETMAIN 13:31
PROVIDERS: ATTEND Internal Medicine Hematology & Oncology
DX: N42.89 Other specified disorders of prostate (principal); J90 Pleural effusion, not elsewhere classified; C15.5 Malignant neoplasm of lower third of esophagus; Z90.49 Acquired absence of other specified parts of digestive tract; Z96.89 Presence of other specified functional implants; Z98.890 Other specified postprocedural states
CPT/HCPCS: 78815; A9552

== ENCOUNTER → 2019-09-17 | Outpatient (CLI) | payer BC ==
--- NOTE | 2019-09-19 19:01 | PE ---
EXAMINATION TYPE: PET CT fusion skull to thigh DATE OF EXAM: 09/17/2019 COMPARISON: CT chest and abdomen 05/28/2018 Prior PET/CT: 03/19/2019 HISTORY: Esophageal cancer TECHNIQUE: Following the intravenous administration of 9.62 mCi of F-18 FDG, whole body images are p erformed from the skull base to the midthigh. Images are reviewed on the computer in the coronal, ax ial, and sagittal planes. Reconstructed rotating images are created on independent workstation and r eviewed on the computer. A localization and attenuation correction CT is performed in conjunction w ith the PET scan. DLP: 537.97 mGycm SCAN: Subsequent Blood glucose: 80 mg/dL Average Mediastinum SUV: 1.39 Average Liver SUV: 1.91 FINDINGS: NECK: No abnormal uptake THORAX: No abnormal uptake. At the gastric pull-through and anastomoses no abnormal uptake is evident . ABDOMEN: No abnormal uptake PELVIS: No abnormal uptake OSSEOUS STRUCTURES: No abnormal uptake LOCALIZATION CT: No suspicious acute changes. COMPARISON: No significant interval change. Prior pleural effusion has resolved. IMPRESSION: 1. No suspicious changes to suggest recurrent or metastatic esophageal cancer.
== END | disposition home or self-care (01) ==
LOC: RADPETMAIN 13:41
PROVIDERS: ATTEND Internal Medicine Hematology & Oncology
DX: C15.5 Malignant neoplasm of lower third of esophagus (principal)
CPT/HCPCS: 78815; A9552

== ENCOUNTER → 2020-03-06 | Outpatient (CLI) | payer BC ==
--- NOTE | 2020-03-07 08:30 | CT ---
EXAMINATION TYPE: CT chest abdomen wo con DATE OF EXAM: 03/06/2020 COMPARISON: 05/28/2018 HISTORY: Malignant neoplasm of esophagus CT DLP: 1113.90mGycm Unenhanced CT of the Chest, Abdomen Unenhanced CT of the chest ,abdomen is performed. The lack of intravenous contrast limits evaluation of the solid and hollow viscera. Oral contrast: Yes CT Chest: LUNGS: Noted are groundglass opacities throughout both lung hou. Correlate for underlying pneumoni a. No distinct mass. MEDIASTINUM: Changes of esophagectomy and gastric pull-through procedure. Debris is seen within the g astric pull-through component. No evidence for recurrent mass. Thoracic aorta is of normal caliber. The heart is not enlarged. No evidence for mediastinal mass or adenopathy. HILAR STRUCTURES: No evidence for mass. No hilar adenopathy is appreciated. OTHER: No significant abnormality. CONTRAST CT ABDOMEN : LIVER/GB: No calcified gallstones. No space occupying hepatic lesion. Biliary tree is of normal ca liber. PANCREAS: No inflammation. No distinct mass. SPLEEN: No splenic enlargement. No lesion seen. ADRENALS: No nodule. No thickening. KIDNEYS/BLADDER: No hydronephrosis. Nonobstructing calculus lower pole right kidney. No distinct ritu al mass. BOWEL: Normal appendix. Normal bowel caliber. No inflammation. LYMPH NODES: No greater than 1cm abdominal or pelvic lymph nodes areappreciated. AORTA: No significant abnormality. OSSEOUS STRUCTURES: No significant abnormality is seen. OTHER: No significant additional abnormality is seen. IMPRESSION: 1. Postsurgical changes of esophagectomy with gastric pull-through. No evidence for recurrent mass. 2. Bilateral scattered groundglass infiltrates may reflect underlying pneumonia. Correlate clinically .
== END | disposition home or self-care (01) ==
LOC: RADCTMAIN 15:03
PROVIDERS: ATTEND Thoracic Surgery (Cardiothoracic Vascular Surgery)
DX: R91.8 Other nonspecific abnormal finding of lung field (principal); C15.9 Malignant neoplasm of esophagus, unspecified; Z90.49 Acquired absence of other specified parts of digestive tract
CPT/HCPCS: 71250; 74150

== ENCOUNTER → 2020-09-22 | Outpatient (CLI) | payer BC ==
--- NOTE | 2020-09-25 08:13 | PE ---
EXAMINATION TYPE: PET CT fusion skull to thigh DATE OF EXAM: 09/22/2020 COMPARISON: CT chest and abdomen March 06, 2020. PET CT September 17, 2019 and older studies. HISTORY: Esophageal cancer progress study. Originally diagnosed May 2018, completed chemotherapy and radiation treatment august 2018 with subsequent surgery October 10, 2018. TECHNIQUE: Following the intravenous administration of 8.8 mCi of F-18 FDG, whole body images are pe rformed from the skull base to the midthigh. Images are reviewed on the computer in the coronal, axi al, and sagittal planes. Reconstructed rotating images are created on independent workstation and re viewed on the computer. A localization and attenuation correction CT is performed in conjunction wi th the PET scan. Blood glucose level equals 86. SCAN: Subsequent Scan FINDINGS: SKULL BASE AND NECK: No new areas of suspicious hypermetabolic uptake. CHEST, MEDIASTINUM, AND HILAR REGION: There are no new areas of abnormal hypermetabolic uptake. Surgi davey changes from esophagectomy and gastric pull up procedure redemonstrated. ABDOMEN AND PELVIS: Normal excretion redemonstrated. No new areas of suspicious hypermetabolic uptake . OSSEOUS STRUCTURES: No suspicious hypermetabolic uptake. OTHER CT: Persistent multilevel facet arthropathy in the mid to lower lumbar spine. Scattered pelvic phleboliths redemonstrated along with central calcifications in normal size prostate gland. Surgical sutures anterior left mid abdomen axial image 163. IMPRESSION: Overall stable findings, no new suspicious hypermetabolic lesions identified to suggest l ocal neoplastic recurrence or metastatic neoplasm.
== END | disposition home or self-care (01) ==
LOC: RADPETMAIN 08:26
PROVIDERS: ATTEND Internal Medicine Hematology & Oncology
DX: Z08 Encounter for follow-up examination after completed treatment for malignant neoplasm (principal); Z85.01 Personal history of malignant neoplasm of esophagus
CPT/HCPCS: 78815; A9552

== ENCOUNTER → 2021-09-21 | Outpatient (CLI) | payer MEDICARE, OTHER ==
[2021-09-21 10:56] LABS: African American GFR (CKD) >90 (>60 ml/min/1.73 sqM); Blood Urea Nitrogen 17 mg/dL (9-20); Non-African American GFR(CKD) >90 (>60 ml/min/1.73 sqM)
--- NOTE | 2021-09-21 15:00 | CT ---
EXAMINATION TYPE: CT ChestAbdPelvis w con DATE OF EXAM: 09/21/2021 COMPARISON: 09/22/2020, 09/17/2019 HISTORY: 66-year-old male C1 5.5, Esophageal cancer, Z03.89, suspect mets TECHNIQUE: Contiguous axial scanning of the chest, abdomen, and pelvis performed with IV Contrast, pa tient injected with 70 mL of Isovue 300. Delayed images through the kidneys were obtained. Coronal/sa gittal reconstructions performed. CT DLP: 1998.0 mGycm Automated exposure control for dose reduction was used. FINDINGS: CHEST: The heart is normal size without pericardial effusion. Borderline ectatic ascending aorta 3.5 cm.. Direct takeoff of the left vertebral artery directly from the aortic arch. Post surgical change of esophagectomy with gastric pull-through procedure. No abnormal soft tissue th ickening at the anastomosis or abnormal thoracic lymphadenopathy. Borderline caliber to the main right and left pulmonary arteries measuring up to 2.9 and 2.5 cm, resp ectively, suggesting underlying pulmonary hypertension. There is mild groundglass density posterior left lower lobe, axial image 36 through 39. Otherwise, no consolidation or pleural effusion. ABDOMEN: No focal liver lesion. Portal venous system is patent. No biliary ductal dilatation. Gallbladder, adrenal glands, spleen, and atrophic pancreas show no gross abnormal body. 3 mm nonobstructive right renal calculus. Extrarenal pelvis left kidney unchanged. A couple tiny francisco ical hypodensities in both kidneys too small for accurate CT characterization, likely small cysts. La rgest on the right measuring 1.3 cm. No dilated small bowel, free fluid, or free air. No mesenteric or retroperitoneal lymphadenopathy. Normal appendix. Moderate stool burden. Mildly redundant sigmoid colon. No pericolonic inflammatory c hange. PELVIS: Bladder urine distended. Prostate gland mildly enlarged at 4.6 cm wide. Central prostatic calcificati ons. Left-sided pelvic phleboliths. No abnormal fluid collection in the pelvis or pelvic lymphadenopa thy. BONES: Mild to moderate degenerative change of both hips. Mild degenerative change both SI joints. Advanced hypertrophic facet arthropathy mid to lower lumbar spine with grade 1, nearly grade 2 anterolisthesi s L4-L5. Mild to moderate degenerative disc disease lower thoracic spine. Mild degenerative disc dise ase throughout the thoracic spine. IMPRESSION: 1. STATUS POST ESOPHAGECTOMY WITH GASTRIC PULL-THROUGH PROCEDURE. NO EVIDENCE FOR RECURRENT OR METAST ATIC DISEASE. 2. CORRELATE FOR UNDERLYING PULMONARY HYPERTENSION. 3. GROUNDGLASS DENSITY POSTERIOR LEFT LOWER LOBE COULD REPRESENT SMALL INFECTIOUS OR INFLAMMATORY FOC I. CORRELATE WITH PATIENT'S SYMPTOMS.
== END | disposition home or self-care (01) ==
LOC: RADCTMAIN 09:16
PROVIDERS: ATTEND Internal Medicine Hematology & Oncology
DX: C15.5 Malignant neoplasm of lower third of esophagus (principal); J98.4 Other disorders of lung; Z90.49 Acquired absence of other specified parts of digestive tract
CPT/HCPCS: 82565; 84520; 71260; 74177; 36415; Q9967 ×2

== ENCOUNTER → 2022-11-20 | Outpatient (CLI) | payer MEDICARE, OTHER ==
[2022-11-20 08:47] LABS: African American GFR (CKD) >90 (>60 ml/min/1.73 sqM); Blood Urea Nitrogen 17 mg/dL (9-20); Non-African American GFR(CKD) >90 (>60 ml/min/1.73 sqM)
--- NOTE | 2022-11-20 10:04 | CT ---
EXAMINATION TYPE: CT chest w con DATE OF EXAM: 11/20/2022 COMPARISON: May 22, 2022 HISTORY: Esophageal Cancer CT DLP: 643.00 mGycm Automated exposure control for dose reduction was used. CONTRAST: CT scan of the chest is performed with IV Contrast, patient injected with 100 ml mL of Isovue 300. FINDINGS: LUNGS: The lungs are grossly clear, there is no concerning parenchymal mass or nodule identified. T here is no pleural effusion or pneumothorax seen. The tracheobronchial tree is patent. MEDIASTINUM: Changes of esophagectomy with gastric pull-through procedure. No recurrent mass at the a nastomosis. There are no greater than 1 cm hilar or mediastinal lymph nodes. No pericardial effusio n is seen. Thoracic aorta is of normal caliber. The heart is not enlarged. UPPER ABDOMEN: No significant abnormality appreciated. OTHER: No additional significant abnormality is seen. IMPRESSION: 1.Changes of esophagectomy with gastric pull-through procedure. No recurrent mass at the anastomosis.
== END | disposition home or self-care (01) ==
LOC: RADCTMAIN 07:49
PROVIDERS: ATTEND Internal Medicine Hematology & Oncology
DX: C15.5 Malignant neoplasm of lower third of esophagus (principal); Z71.3 Dietary counseling and surveillance; I10 Essential (primary) hypertension; R13.10 Dysphagia, unspecified
CPT/HCPCS: 82565; 84520; 71260; 36415; Q9967

== ENCOUNTER → 2023-05-20 | Outpatient (CLI) | payer MEDICARE, OTHER ==
[2023-05-20 08:34] LABS: African American GFR (CKD) >90 (>60 ml/min/1.73 sqM); Blood Urea Nitrogen 15 mg/dL (9-20); Non-African American GFR(CKD) >90 (>60 ml/min/1.73 sqM)
--- NOTE | 2023-05-20 09:06 | CT ---
EXAMINATION TYPE: CT chest w con CT DLP: 826 mGycm, Automated exposure control for dose reduction was used. 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 Sagittal and coronal reformats were created for review. Contrast used:100 mL of Isovue 300 with IV Contrast (None if empty) Oral contrast used: (None if empty) FINDINGS: LUNGS/ PLEURA: The lung parenchyma appears unremarkable. AIRWAY: Patent and unremarkable. HEART: Size within normal limits. MEDIASTINUM: No gross evidence of adenopathy. Esophagectomy with gastric pull-through changes. VASCULATURE: No aortic aneurysm. 4 vessel aortic arch with vessels patent. MUSCULOSKELETAL: Mild disc degeneration changes are present throughout the thoracolumbar spine. SOFT TISSUES/LYMPH NODES: Unremarkable. LOWER NECK: No significant findings. UPPER ABDOMEN: No significant findings. IMPRESSION: Postsurgical changes with esophagectomy with gastric pull-through. No lymphadenopathy or suspicious m ass. Follow up recommendations for incidental pulmonary nodules, if there are any, are per [employer] or [employer]. [email or web address].org/[email or web address]?lang=us
== END | disposition home or self-care (01) ==
LOC: RADCTMAIN 07:55
PROVIDERS: ATTEND Internal Medicine Hematology & Oncology
DX: Z03.89 Encounter for observation for other suspected diseases and conditions ruled out (principal); C15.5 Malignant neoplasm of lower third of esophagus; Z98.890 Other specified postprocedural states
CPT/HCPCS: 82565; 84520; 71260; 36415; Q9967

== ENCOUNTER → 2023-11-19 | Outpatient (CLI) | payer MEDICARE, OTHER ==
--- NOTE | 2023-12-11 16:23 | CT ---
EXAMINATION TYPE: CT chest w con CT DLP: 529.40 mGycm, Automated exposure control for dose reduction was used. DATE OF EXAM: 11/19/2023 4:55 PM COMPARISON: Multiple CT chests with most recent 05/20/2023, PET CT 09/22/2020 CLINICAL INDICATION: Male, 68 year old with history of esophageal cancer, dysphagia; , TECHNIQUE: Multiple axial images were obtained through the chest following the administration of 100 cc of Isovue 370. . Coronal and sagittal reformats reviewed. FINDINGS: LUNGS/ PLEURA: Bilateral upper lobe linear scarring. No pleural effusion or pneumothorax. No focal consolidation. No new suspicious pulmonary nodules or masses. AIRWAY: Patent and unremarkable. HEART: Size within normal limits. MEDIASTINUM: No evidence of adenopathy. Esophagectomy with gastric pull- through changes redemonstrated. No abnormal soft tissue thickening at the anastomosis site. VASCULATURE: No aortic aneurysm. 4 vessel aortic arch with vessels patent. MUSCULOSKELETAL: Mild disc degeneration changes are present throughout the thoracolumbar spine. No acute osseous abnormality. No aggressive osseous lesion. SOFT TISSUES/LYMPH NODES: Unremarkable. LOWER NECK: No significant findings. UPPER ABDOMEN: Small left superior pole renal cysts are redemonstrated. IMPRESSION: Postsurgical changes with esophagectomy and gastric pull-through. No lymphadenopathy or suspicious mass to suggest recurrence/metastasis. MTDD
== END | disposition home or self-care (01) ==
LOC: RADCTMAIN 13:00
PROVIDERS: ATTEND Internal Medicine Hematology & Oncology
DX: C15.5 Malignant neoplasm of lower third of esophagus (principal); I10 Essential (primary) hypertension; R13.10 Dysphagia, unspecified; Z71.3 Dietary counseling and surveillance; Z80.51 Family history of malignant neoplasm of kidney
CPT/HCPCS: 82565; 84520; 71260; 36415; Q9967

== ENCOUNTER → 2024-06-25 | Outpatient (CLI) | payer MEDICARE, OTHER ==
--- NOTE | 2024-06-25 12:16 | CT ---
EXAMINATION TYPE: CT chest w con DATE OF EXAM: 06/25/2024 11:51 AM COMPARISON: CT 11/19/2023. CLINICAL INDICATION: Male, 69 years old with history of C15.5 MALIGNANT NEOPLASM OF LOWER THIRD OF ES OPHAG; PHH, hx of esophageal ca, prior on pacs. TECHNIQUE: Multiple axial images were obtained through the chest. Sagittal and coronal reformats were created for review. MIP was performed on a separate workstation. Contrast used:100ml mL of Isovue 300 with IV Contrast (None if empty) Oral contrast used: (None if empty) CT DLP: 550.50 mGycm, Automated exposure control for dose reduction was used. FINDINGS: LUNGS/ PLEURA: Bilateral upper lobe linear scarring. No pleural effusion or pneumothorax. No focal co nsolidation. No new suspicious pulmonary nodules or masses. AIRWAY: Patent and unremarkable. HEART: Size within normal limits. MEDIASTINUM: No evidence of adenopathy. Esophagectomy with gastric pull- through changes redemonstrat ed. No abnormal soft tissue thickening at the anastomosis site. VASCULATURE: No aortic aneurysm. 4 vessel aortic arch with vessels patent. MUSCULOSKELETAL: Moderate disc degeneration changes are present throughout the thoracolumbar spine. N o acute osseous abnormality. No aggressive osseous lesion. SOFT TISSUES/LYMPH NODES: Unremarkable. LOWER NECK: No significant findings. UPPER ABDOMEN: Small left superior pole renal cysts are redemonstrated. IMPRESSION: 1. Similar postsurgical changes with esophagectomy with gastric pull-through. 2. No lymphadenopathy or suspicious mass to suggest recurrence/metastasis. [facility], , 06/25/2024 12:14 PM
== END | disposition home or self-care (01) ==
LOC: RADCTMAIN 10:07
PROVIDERS: ATTEND Internal Medicine Hematology & Oncology
DX: C15.5 Malignant neoplasm of lower third of esophagus (principal); R13.10 Dysphagia, unspecified; I10 Essential (primary) hypertension; Z71.3 Dietary counseling and surveillance; Z98.890 Other specified postprocedural states; N28.1 Cyst of kidney, acquired
CPT/HCPCS: 71260; 36415; Q9967